=== PATIENT | male | born 1985 | race Caucasian/White ===

== ENCOUNTER 2016-11-28 11:00 | Emergency (ER) | payer OTHER ==
[~2016-11-28] VITALS: Ht 170.2 cm; Wt 78.0 kg
[2016-11-28 11:39] LABS: BASOPHIL % 0.2 % (0-2); RED CELL DISTRIBUTION WIDTH 13.6 % (11.5-14.5)
[2016-11-28 11:51] LABS: CALCIUM 8.6 mg/dL (8.5-10.1); CHLORIDE SERUM 103 mmol/L (98-107); CREATININE SERUM 1.1 mg/dL (0.7-1.3); GFR1 > 60 mL/min; GLUCOSE SERUM 127 mg/dL (74-106); POTASSIUM SERUM 3.5 mmol/L (3.5-5.1); SODIUM SERUM 143 mmol/L (136-145)
[2016-11-28 11:55] LABS: PLATELET COUNT 445 x10^3mcL (130-400)
[2016-11-28 11:56] LABS: ALBUMIN 3.9 g/dL (3.4-5.0); ALKALINE PHOSPHATASE 113 U/L (46-116); ALT/SGPT 46 U/L (16-63); AST/SGOT 32 U/L (15-37); BILIRUBIN TOTAL 0.35 mg/dL (0.20-1.00); LIPASE 73 IU/L (73-393)
[2016-11-28 11:57] LABS: TOTAL PROTEIN, SERUM 8.3 g/dL (6.4-8.2)
[2016-11-28 13:06] VITALS: BP 143/94
== END 2016-11-28 13:06 | disposition home or self-care (01) ==
LOC: ED 11:00
PROVIDERS: Emergency Medicine
DX: K29.20 Alcoholic gastritis without bleeding (principal); F10.20 Alcohol dependence, uncomplicated; E86.0 Dehydration
CPT/HCPCS: J2060; J2405; J3411; J3475; J3490

== ENCOUNTER 2017-02-09 19:46 | Emergency (ER) | payer OTHER ==
[2017-02-09 22:34] LABS: AMPHETAMINE QUAL UR POSITIVE (NEG <=1000)
[2017-02-09 23:08] VITALS: BP 159/108
== END 2017-02-09 23:09 | disposition home or self-care (01) ==
LOC: ED 19:46
PROVIDERS: Emergency Medicine
DX: F15.10 Other stimulant abuse, uncomplicated (principal); F14.10 Cocaine abuse, uncomplicated; F19.10 Other psychoactive substance abuse, uncomplicated; F41.9 Anxiety disorder, unspecified; F32.9 Major depressive disorder, single episode, unspecified
CPT/HCPCS: J2060; J2405; J7030; Q0092

== ENCOUNTER 2017-02-11 19:51 | Emergency (ER) | payer OTHER ==
[2017-02-11 19:58] VITALS: BP 128/83
== END 2017-02-11 22:46 | disposition left against medical advice (07) ==
LOC: ED 19:51
DX: Z53.21 Procedure and treatment not carried out due to patient leaving prior to being seen by health care provider (principal)

== ENCOUNTER 2017-02-28 03:58 | Emergency (ER) | payer OTHER ==
[2017-02-28 04:27] LABS: BASOPHIL % 0.5 % (0-2); PLATELET COUNT 292 x10^3mcL (130-400)
[2017-02-28 04:33] LABS: RED CELL DISTRIBUTION WIDTH 15.5 % (11.5-14.5)
[2017-02-28 04:44] LABS: CALCIUM 8.5 mg/dL (8.5-10.1); CARBON DIOXIDE 26.7 mmol/L (21-32); CHLORIDE SERUM 109 mmol/L (98-107); GFR1 > 60 mL/min; GLUCOSE SERUM 124 mg/dL (74-106); POTASSIUM SERUM 3.4 mmol/L (3.5-5.1); SODIUM SERUM 147 mmol/L (136-145)
[2017-02-28 04:46] LABS: AMPHETAMINE QUAL UR NONE DETECTED (NEG <=1000)
[2017-02-28 04:50] LABS: ALKALINE PHOSPHATASE 136 U/L (46-116); ALT/SGPT 35 U/L (16-63); AST/SGOT 23 U/L (15-37); BILIRUBIN TOTAL 0.14 mg/dL (0.20-1.00); TOTAL PROTEIN, SERUM 7.4 g/dL (6.4-8.2)
[2017-02-28 04:51] LABS: ALBUMIN 3.2 g/dL (3.4-5.0)
[2017-02-28 06:06] VITALS: BP 122/51
== END 2017-02-28 06:06 | disposition home or self-care (01) ==
LOC: ED 03:58
PROVIDERS: Emergency Medicine
DX: F41.9 Anxiety disorder, unspecified (principal); F32.9 Major depressive disorder, single episode, unspecified; Z79.899 Other long term (current) drug therapy
CPT/HCPCS: 83880; G0480; J1885; J2060; J7030; Q0092

== ENCOUNTER 2017-05-11 03:22 | Emergency (ER) | payer OTHER ==
[~2017-05-11] VITALS: Ht 167.6 cm; Wt 72.6 kg
[2017-05-11 04:27] VITALS: BP 161/63
== END 2017-05-11 04:27 | disposition left against medical advice (07) ==
LOC: ED 03:22
DX: Z53.21 Procedure and treatment not carried out due to patient leaving prior to being seen by health care provider (principal)

== ENCOUNTER 2018-07-02 15:42 | Emergency (ER) | payer SELFPAY ==
[~2018-07-02] VITALS: Ht 167.6 cm; Wt 83.0 kg
[2018-07-02 15:53] VITALS: Ht 167.6 cm; Wt 83.0 kg
[2018-07-02 19:19] LABS: BASOPHIL % 0.4 % (0-2); PLATELET COUNT 242 x10^3mcL (130-400); RED CELL DISTRIBUTION WIDTH 12.9 % (11.5-14.5)
[2018-07-02 19:36] LABS: CALCIUM 8.3 mg/dL (8.5-10.1); CARBON DIOXIDE 30.9 mmol/L (21-32); CHLORIDE SERUM 102 mmol/L (98-107); CREATININE SERUM 0.8 mg/dL (0.7-1.3); GFR1 > 60 mL/min; GLUCOSE SERUM 100 mg/dL (74-106); POTASSIUM SERUM 3.4 mmol/L (3.5-5.1); SODIUM SERUM 139 mmol/L (136-145)
[2018-07-02 19:40] LABS: ALBUMIN 3.8 g/dL (3.4-5.0); ALKALINE PHOSPHATASE 76 U/L (46-116); ALT/SGPT 43 U/L (16-63); AMYLASE 88 U/L (25-115); AST/SGOT 38 U/L (15-37); BILIRUBIN TOTAL 0.89 mg/dL (0.20-1.00); CHOLESTEROL 176 mg/dL (<200); HDL CHOLESTEROL 118 mg/dL (40-60); LIPASE 99 IU/L (73-393); MAGNESIUM 2.4 mg/dL (1.8-2.4); TOTAL PROTEIN, SERUM 6.6 g/dL (6.4-8.2)
[2018-07-02 19:59] LABS: microscopic required? NO
[2018-07-02 20:29] LABS: urine erythrocyte NEGATIVE (NEGATIVE)
[2018-07-02 20:37] LABS: AMPHETAMINE QUAL UR NONE DETECTED (See below)
[2018-07-02 20:39] VITALS: BP 108/68
== END 2018-07-02 20:35 | disposition home or self-care (01) ==
LOC: ED 15:42
PROVIDERS: Emergency Medicine
DX: F10.239 Alcohol dependence with withdrawal, unspecified (principal); F41.9 Anxiety disorder, unspecified; R07.89 Other chest pain; F32.9 Major depressive disorder, single episode, unspecified
CPT/HCPCS: 83880; G0480; J2060; J3411; J3475; J3490; J7030; Q0092

== ENCOUNTER 2018-11-04 16:25 | Emergency (ER) | payer SELFPAY ==
[~2018-11-04] VITALS: Ht 167.6 cm; Wt 89.8 kg
[2018-11-04 16:33] VITALS: Ht 167.6 cm; Wt 89.8 kg
[2018-11-04 19:11] VITALS: BP 152/75
== END 2018-11-04 19:11 | disposition home or self-care (01) ==
LOC: ED 16:25
DX: F41.9 Anxiety disorder, unspecified (principal); F32.9 Major depressive disorder, single episode, unspecified

== ENCOUNTER 2020-06-14 23:04 | Emergency (ER) | payer SELFPAY ==
[~2020-06-14] VITALS: Ht 167.6 cm; Wt 90.7 kg
[2020-06-14 23:07] VITALS: Ht 167.6 cm; Wt 90.7 kg
[2020-06-15 00:20] LABS: UA SPECIFIC GRAVITY 1.025 (1.005-1.035); microscopic required? YES; urine erythrocyte NEGATIVE (NEGATIVE)
[2020-06-15 01:11] LABS: CALCIUM 8.4 mg/dL (8.5-10.1); CARBON DIOXIDE 27.4 mmol/L (21-32); CHLORIDE SERUM 101 mmol/L (98-107); CREATININE SERUM 0.8 mg/dL (0.7-1.3); GFR1 > 60 mL/min; GLUCOSE SERUM 94 mg/dL (74-106); POTASSIUM SERUM 3.5 mmol/L (3.5-5.1); SODIUM SERUM 139 mmol/L (136-145)
[2020-06-15 01:18] LABS: ALBUMIN 3.8 g/dL (3.4-5.0); ALKALINE PHOSPHATASE 122 U/L (46-116); ALT/SGPT 223 U/L (16-63); AST/SGOT 173 U/L (15-37); TOTAL PROTEIN, SERUM 7.5 g/dL (6.4-8.2)
[2020-06-15 01:31] LABS: BASOPHIL % 0.8 % (0-2); PLATELET COUNT 299 x10^3mcL (130-400); RED CELL DISTRIBUTION WIDTH 13.4 % (11.5-14.5)
[2020-06-15 02:09] VITALS: BP 122/77
== END 2020-06-15 02:20 | disposition home or self-care (01) ==
LOC: ED 23:04
PROVIDERS: Emergency Medicine
DX: F10.239 Alcohol dependence with withdrawal, unspecified (principal); U07.1 COVID-19
CPT/HCPCS: J2060; J2405; J7030